=== PATIENT | female | born 1985 | race Caucasian/White ===

== ENCOUNTER 2019-02-17 08:21 | Outpatient (CLI) | payer BC ==
--- NOTE | 2019-02-17 09:47 | RAD ---
EXAM: Esophagram HISTORY: Dysphagia COMPARISON: None EXPOSURE: 2.2 minutes; 527.7 Gy per centimeter squared FINDINGS: A double contrast barium swallow/esophagram was performed. Esophageal motility is normal. No mucosal lesions are seen in the esophagus. No extrinsic compression on the esophagus is seen. No hiatal hernia. No gastroesophageal reflux. IMPRESSION: Normal esophagram
== END 2019-02-17 08:22 | disposition home or self-care (01) ==
LOC: RAD 08:21
PROVIDERS: ATTEND Family Medicine
DX: R13.10 Dysphagia, unspecified (principal); Z00.00 Encounter for general adult medical examination without abnormal findings
CPT/HCPCS: 36415; 74220; 80053; 80061; 81001; 82306; 83540; 84443; 85025

== ENCOUNTER 2023-01-24 08:42 | Outpatient (CLI) | payer OTHER | END 2023-01-24 08:43 | disposition home or self-care (01) | LOC: BICMRI 08:42 | PROVIDERS: ATTEND Family Medicine | DX: R20.0 Anesthesia of skin (principal); G93.89 Other specified disorders of brain; D49.1 Neoplasm of unspecified behavior of respiratory system | CPT/HCPCS: 70553 ==